=== PATIENT | male | born 1955 | race Caucasian/White ===

== ENCOUNTER 2024-04-23 01:16 | Emergency (ER) | payer MEDICARE, SELFPAY ==
[2024-04-23] VITALS (9 sets, daily range): BP systolic 127–177; BP diastolic 75–96; PULSE 61–88; RESP 18; TEMP 36.9; O2SAT 96–98; BMI 25.8
--- NOTE | 2024-04-23 01:54 | EKG_ITS ---
[place] [id number] [address] [place] [id number] Test Date: 2024-04-23 Pat Name: Darrell Crowell Department: [facility] Room: Gender: Male Type Caster: : 1955 Requested By: Order Number: [id number] Reading MD: Duc Woodard Measurements Intervals [place] Rate: 66 P: 45 DC: 174 QRS: -20 QRSD: 102 T: 9 QT: 418 QTc: 438 Interpretive Statements Sinus rhythm with occasional premature ventricular complexes Nonspecific T wave abnormality Electronically Signed On 04-27-2024 8:59:51 PDT by Duc Woodard
[2024-04-23 02:01] LABS: Alanine Aminotransferase 22 IU/L (<50); Albumin 4.4 g/dL (3.5-5.0); Albumin Globulin Ratio 1.6 (1.0-2.8); Alkaline Phosphatase 72 U/L (38-126); Aspartate Aminotransferase 28 IU/L (17-59); BUN Creatinine Ratio 19.4 (6-22); Bilirubin Total 0.7 mg/dL (0.2-1.3); Blood Urea Nitrogen 18 mg/dL (9-20); Calcium 9.3 mg/dL (8.4-10.2); Carbon Dioxide 27 mmol/L (22-32); Chloride 107 mmol/L (98-107); Estimated Glomerular Filt Rate > 60 mL/min (>60); Globulin 2.8 g/dL (1.7-4.1); Glucose 140 mg/dL (80-110); HEMOLYSIS < 15 (0-50); Lipase 171 U/L (23-300); Potassium 3.7 mmol/L (3.4-5.1); Sodium 138 mmol/L (137-145); Total Protein 7.2 g/dL (6.3-8.2)
[2024-04-23 02:04] LABS: Add Manual Diff / Slide Review NO; Basophils Absolute Auto 0 /uL (0-100); Basophils Percent Auto 0.3 % (0-2); Eosinophils Absolute Auto 400 /uL (0-450); Eosinophils Percent Auto 5.7 % (2-4); Hematocrit 45.4 % (41-53); Hemoglobin 15.2 g/dL (13.5-17.5); Lymphocytes Absolute Auto 1500 /uL (1100-4500); Lymphocytes Percent Auto 20.6 % (25-40); Mean Corpuscular HGB Conc 33.4 % (30-36); Mean Corpuscular Hemoglobin 31.5 PG (26-34); Mean Corpuscular Volume 94.4 fL (80-100); Monocytes Absolute Auto 800 /uL (0-900); Monocytes Percent Auto 11.1 % (3-14); Neutrophils Absolute Auto 4700 /uL (1500-7000); Neutrophils Percent Auto 62.3 % (50-75); Platelet Count 152 X10^3/uL (150-400); Red Blood Cell Count 4.81 X10^6/uL (4.5-5.9); Red Cell Distribution Width 13.4 % (11.6-14.8); White Blood Cell Count 7.5 X10^3/uL (4.5-11.0)
--- NOTE | 2024-04-23 02:06 | ED_ITS ---
HPI - Abdominal Pain General Chief Complaint: Abdominal Pain Stated Complaint: abd pain Time Seen by Provider: 04/23/24 02:04 Source: patient Mode of arrival: Ambulatory History of Present Illness HPI narrative: Patient is a healthy 68-year-old male who presents today with sudden onset of sharp right lower quadrant pain. He says he felt a little last night however tonight he has severe pain where he was doubled over unable to walk. He did feel nauseous a little but no vomiting. His pain is totally subsided now and gone. He has absolutely no back pain is not radiating to his groin. No fever or chills. No other symptoms. He reports a total of 3 times where he has been doubled over in pain from this this evening. No history of nephrolithiasis Related Data Allergies Allergy/AdvReac Type Severity Reaction Status Date / Time No Known Drug Allergies Allergy Verified 04/23/24 01:40 Patient History Social History Smoking Status: Never smoker Smoking Status: Never smoker alcohol intake frequency: 0-2 drinks per day Substance Use Type: marijuana Exam Initial Vital Signs Initial Vital Signs: Vital Signs Pulse Rate 85 04/23/24 01:26 Pulse Oximetry 97 04/23/24 01:26 GENERAL: Alert pleasant 68-year-old male HEENT: Head atraumatic,EOMI, pupils reactive, face symmetric, moist mucous membranes CARDIOVASCULAR: Regular rate and rhythm without murmurs, rubs or gallops. RESPIRATORY: Breath sounds equal bilaterally, no wheezes rales or rhonchi. ABDOMEN: Soft, nontender. Normoactive bowel sounds all 4 quadrants. No guarding or rebound. : No CVA tenderness EXTREMITIES: Normal range of motion, no clubbing or edema. Neurovascularly intact NEUROLOGICAL: Alert and oriented x4.Normal gait and speech. Cranial nerves II through XII grossly intact. SKIN: Warm, dry, no laceration, no petechiae, no rashes or lesions. Course Orders Ordered: ED Orders 04/23/24 01:35 Complete Blood Count AUTO DIFF Stat Comprehensive Metabolic Panel Stat Lipase Stat 04/23/24 01:40 EKG-12 Lead Stat 04/23/24 02:49 CT kidney ureter bladder (KUB) Stat Discontinued Medications Ondansetron HCl (Ondansetron 4 Mg/2 Ml Inj) 4 mg IV NOW PRN PRN Reason: Nausea And Vomiting Ondansetron HCl (Ondansetron 4 Mg Odt) 4 mg PO NOW PRN PRN Reason: Nausea And Vomiting Vital Signs Vital signs: Vital Signs - 8 hr 04/23/24 01:26 04/23/24 01:27 04/23/24 01:27 Temperature Pulse Rate 85 75 Respiratory Rate Blood Pressure 177/96 H Pulse Oximetry 97 97 Oxygen Delivery Method 04/23/24 01:30 04/23/24 01:30 04/23/24 01:32 Temperature 98.5 F Pulse Rate 71 77 Respiratory Rate 18 Blood Pressure 158/95 H 177/96 H Pulse Oximetry 98 98 Oxygen Delivery Method Room Air 04/23/24 02:00 04/23/24 02:00 04/23/24 02:30 Temperature Pulse Rate 67 Respiratory Rate Blood Pressure 129/76 127/75 Pulse Oximetry 98 Oxygen Delivery Method 04/23/24 02:30 04/23/24 03:00 04/23/24 03:00 Temperature Pulse Rate 63 61 Respiratory Rate Blood Pressure 128/78 Pulse Oximetry 97 96 Oxygen Delivery Method 04/23/24 03:28 04/23/24 03:28 04/23/24 03:30 Temperature Pulse Rate 88 Respiratory Rate Blood Pressure 160/96 H 155/87 H Pulse Oximetry 98 Oxygen Delivery Method 04/23/24 03:30 Temperature Pulse Rate 62 Respiratory Rate Blood Pressure Pulse Oximetry 98 Oxygen Delivery Method MDM - Abdominal Pain Lab Data 04/23/24 01:35 04/23/24 01:35 Labs: Lab Results 04/23/24 Range/Units 01:35 WBC 7.5 (4.5-11.0) X10^3/uL RBC 4.81 (4.5-5.9) X10^6/uL Hgb 15.2 (13.5-17.5) g/dL Hct 45.4 (41-53) % MCV 94.4 (80-100) fL MCH 31.5 (26-34) PG MCHC 33.4 (30-36) % RDW 13.4 (11.6-14.8) % Plt Count 152 (150-400) X10^3/uL Neut % (Auto) 62.3 (50-75) % Lymph % (Auto) 20.6 L (25-40) % [place] % (Auto) 11.1 (3-14) % Eos % (Auto) 5.7 H (2-4) % Baso % (Auto) 0.3 (0-2) % Neut # (Auto) 4700 (3427-1122) /uL Lymph # (Auto) 1500 (8747-1247) /uL [place] # (Auto) 800 (0-900) /uL Eos # (Auto) 400 (0-450) /uL Baso # (Auto) 0 (0-100) /uL Sodium 138 (137-145) mmol/L Potassium 3.7 (3.4-5.1) mmol/L Chloride 107 (98-107) mmol/L Carbon Dioxide 27 (22-32) mmol/L BUN 18 (9-20) mg/dL Creatinine 0.93 (0.66-1.25) mg/dL Estimated GFR > 60 (>60) mL/min BUN/Creatinine Ratio 19.4 (6-22) Glucose 140 H (80-110) mg/dL Calcium 9.3 (8.4-10.2) mg/dL Total Bilirubin 0.7 (0.2-1.3) mg/dL AST 28 (17-59) IU/L ALT 22 (<50) IU/L Alkaline Phosphatase 72 (38-126) U/L Total Protein 7.2 (6.3-8.2) g/dL Albumin 4.4 (3.5-5.0) g/dL Globulin 2.8 (1.7-4.1) g/dL Albumin/Globulin Ratio 1.6 (1.0-2.8) Lipase 171 (23-300) U/L Imaging Data CT scan - abdomen/pelvis: Radiologist's Impression: Preliminary report no evidence of colitis diverticulitis bowel obstruction obstructive uropathy or acute appendicitis. Large volume of stool within colon compatible with constipation MDM Narrative Medical decision making narrative: Patient 68-year-old healthy male presents today with right-sided abdominal pain. It has come and gone a couple of times. He has no back pain or pain radiating to his groin and no history of kidney stone. Pain has completely resolved here his abdomen exam is completely benign and nontender. We did discuss about doing a CT versus watchful waiting because his abdomen was really nontender. However agreed to just get the CT scan so he did not have to make a 2nd trip to the ED. Blood work has been reviewed no leukocytosis WBC of 7.5 hemoglobin 15.2 hematocrit 45.4, electrolytes are within normal limits his creatinine is 0.9 bilirubin is 0.7 AST 28 ALT 22, alk-phos 72, lipase 171 CT shows constipation only Initially concern for possible nephrolithiasis based on waxing and waning of symptoms. However that was ruled out with CT. He has not Wanting or needing anything here for pain. Discharge Plan Departure Patient Disposition: Home Clinical Impression: Constipation Instructions: DI for Constipation Activity Restrictions/Additional Instructions: *You have been diagnosed with constipation *What to do: At this time blood work is overall reassuring CT does not show any evidence of appendicitis or kidney stone *Continue to take medications as directed Tylenol Motrin as needed for pain *Follow up with your primary care provider in 2-3 days or call [phone] *Return to ER if you should have increase abdominal pain [or] any new, worsening or concerning symptoms Referrals: Luis Barber MD [Primary Care Provider] - Stand Alone Forms: Patient Portal/API
--- NOTE | 2024-04-23 02:49 | DI.CT.S_ITS ---
PROCEDURE: CT KIDNEY URETER BLADDER (KUB) INDICATIONS: right sided pain TECHNIQUE: Axial sections were acquired from the lung bases to the pubic symphysis. Coronal and sagittal reformats were performed. For radiation dose reduction, the following was used: automated exposure control, adjustment of mA and/or kV according to patient size. COMPARISON: None. FINDINGS: Image quality: Diagnostic. Lower Chest: No significant findings. URINARY: Right Kidney: No stones or hydronephrosis. Right Ureter: No hydroureter. Left Kidney: No stones or hydronephrosis. Left Ureter: No hydroureter. Bladder: Normal wall thickness multiple bladder stones present. ABDOMEN: Liver: No contour-deforming solid mass. Gallbladder: No radiopaque gallstones or wall thickening. Biliary ducts: No biliary dilation. Pancreas: No ductal dilation. Spleen: Size is within normal limits. Adrenal Glands: No adrenal nodules. Stomach and Bowel: Normal colonic caliber, without significant wall thickening. Large colonic stool load. Peritoneum: No abnormal intraperitoneal fluid. No free air. Ventral Wall: No hernia. Abdominal Nodes: No enlarged retroperitoneal or mesenteric lymph nodes. Vessels: Aorta and inferior vena cava are normal in size. PELVIS: Pelvic Organs: Prostatomegaly. Pelvic Nodes: Unremarkable. Miscellaneous: Small left inguinal hernia containing fat. Bones: Grade 1 anterolisthesis of L4 on L5 due to degenerative changes. Degenerative disc disease of the lumbar spine. IMPRESSION: No obstructing stones or hydronephrosis. Multiple layering bladder stones. Large colonic stool load. Agree with preliminary report. Dictated by: Mio Redd M.D. on 04/23/2024 at 8:07 Approved by: Mio Redd M.D. on 04/23/2024 at 8:09
== END 2024-04-23 03:57 | disposition home or self-care (01) ==
PROVIDERS: Emergency Provider Emergency Medicine; PCP Internal Medicine
DX: K59.00 Constipation, unspecified (principal)
CPT/HCPCS: 36415; 74176; 80053; 83690; 85025; 93005; 99283; 99284